=== PATIENT | male | born 1980 | race Caucasian/White ===

== ENCOUNTER → 2019-09-10 11:49 | Outpatient (CLI) | payer OTHER, SELFPAY ==
--- NOTE | ~2019-09-10 | MR_ITS ---
EXAMINATION: MRA brain wo con EXAM DATE: 09/10/2019 12:18 INDICATION: Generalized headaches for couple of years. TECHNIQUE: 3-D [id number] MRA of the intracranial arteries was performed without contrast. There is no prior study for comparison. Correlation was made with brain MRI 06/14/2017. FINDINGS: There is normal flow related signal seen within the vertebral, basilar and internal carotid arteries. There is no proximal stenosis. There are no aneurysms identified. Both A1 and P1 segments are pat ent. Flow in the cerebral arteries is symmetric. IMPRESSION: Normal MRA brain exam. Reviewed, dictated and finalized at location B. IMPRESSION: Normal MRA brain exam.
== END ==
PROVIDERS: PCP Family Medicine; Visit Provider Physician Assistant
DX: F17.200 Nicotine dependence, unspecified, uncomplicated (principal); R51 Headache; Z79.899 Other long term (current) drug therapy
CPT/HCPCS: 70544

== ENCOUNTER → 2021-04-14 08:15 | Outpatient (CLI) | payer OTHER, SELFPAY ==
[2021-04-14 19:08] LABS: SARS-CoV-2 RNA PCR Positive
== END ==
PROVIDERS: PCP Family Medicine; Visit Provider Physician Assistant Medical
DX: U07.1 COVID-19 (principal); R68.89 Other general symptoms and signs
CPT/HCPCS: C9803; U0003; U0005

== ENCOUNTER 2021-07-18 19:09 | Emergency (ER) | payer OTHER, SELFPAY ==
--- NOTE | ~2021-07-18 | XR_ITS ---
EXAM: XR finger 2nd RT min 2V HISTORY: fall, PAIN AT PIP JOINT RADIATES PROXIMALLY COMPARISON: None available FINDINGS: Normal mineralization. No fracture or dislocation. No lytic or blastic lesion. Joint space s maintained. No erosion or periosteal change. Soft tissue swelling over the second proximal interpha langeal joint. IMPRESSION: No acute osseous finding in the right second finger. Reviewed, dictated and finalized at location K.
[2021-07-18 19:16] VITALS: BP 128/90; PULSE 86; RESP 18; TEMP 36.8; O2SAT 97
--- NOTE | 2021-07-18 20:30 | ED.UPPEXIN ---
HPI - Extremity Injury (Upper) General Chief Complaint: Extremity Injury, Upper Stated Complaint: right index finger injury Time Seen by Provider: 07/18/21 20:05 Source: patient History of Present Illness HPI narrative: Patient presents with a finger injury. Patient reports he is walking his in-laws dog when he tripped lost control the dog and fell to the concrete. 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 His pain is primarily on the PIP joint and he also noted swelling and ecchymoses. Reports he has a hard time flexing his finger due to the edema is concerned maybe he broke his finger so came to the ER for evaluation. In the months we can denies any loss of consciousness strike his head or the use of any blood thinners. Related Data Home Medications Medication Instructions Recorded Confirmed No Home Medications 02/05/21 02/05/21 Allergies Allergy/AdvReac Type Severity Reaction Status Date / Time naproxen Allergy Unknown stomach Verified 07/18/21 19:18 ulcer nickel Allergy Unknown Unknown Verified 07/18/21 19:18 Review of Systems Review of Systems: CONSTITUTIONAL: Denies fever, chills, or sweats. EYES: Denies visual changes, redness, or discharge. ENT: Denies rhinorrhea, congestion, sore throat, or otalgia. SKIN: Denies rash or itching. MUSCULOSKELETAL: Denies back pain, or myalgia. NEUROLOGIC: Denies headache, numbness, dizziness, or weakness. PSYCHIATRIC: Denies anxiety or depression. All systems reviewed & are unremarkable except as noted in HPI and below PMFSH Family History Family History Grandparent Diabetes mellitus Mother Depression Social History Social History Tobacco type: cigarettes Alcohol intake: current Substance use: never Substance use type: does not use Exam Narrative: GENERAL: Well-appearing, well-nourished, and in no acute distress. HEAD: Normocephalic, atraumatic. EYES: PERRLA and EOMI. ENT: Nares clear, no rhinorrhea or epistaxis. Mucous membranes moist. NECK: Supple. No masses. No JVD EXTREMITIES: Limited range of motion of the second digit right hand due to edema there is edema and ecchymosis along PIP joint distal extremity as sensation intact to light touch cap refill is less than 2 seconds DIP joint range of motion remains intact on the second digit right hand there is tenderness at the PIP joint on the second digit right hand no other areas of focal tenderness SKIN: Warm, dry, no rash. NEURO: No focal deficits. Alert and oriented x3. PSYCH: Normal mood and affect. Course Vital Signs Vital signs: Vital Signs Temperature 36.8 C 07/18/21 19:16 Pulse Rate 86 07/18/21 19:16 Respiratory Rate 18 07/18/21 19:16 Blood Pressure 128/90 07/18/21 19:16 Pulse Oximetry 97 07/18/21 19:16 Temperature 36.8 C 07/18/21 19:16 Pulse Rate 86 07/18/21 19:16 Respiratory Rate 18 07/18/21 19:16 Blood Pressure 128/90 07/18/21 19:16 Pulse Oximetry 97 07/18/21 19:16 MDM - Extremity Injury (Upper) MDM Narrative Medical decision making narrative: H&P as above, vss, pt looks clinically well, exam with no obvious deformity distal extremity neurovascular intact, imaging without acute process, additional labs/img considered, symptomatic relief available as needed, on reevaluation pt continues to looks clinically well. Suspect soft tissue injury such as strain or contusion, dns fracture, dislocation, major neurovascular compromise. plan to tx/monitor as op w/ pcm f/u findings/plan discussed with pt, pt agree/comfortable with plan, return precautions given Imaging Data Radiologist's impression: Impressions Finger X-Ray 07/18/21 19:26 IMPRESSION: No acute osseous finding in the right second finger. Discharge Plan Disc
== END 2021-07-18 20:40 | disposition home or self-care (01) ==
PROVIDERS: Emergency Provider Emergency Medicine; PCP Family Medicine
DX: S69.91XA Unspecified injury of right wrist, hand and finger(s), initial encounter (principal); F17.210 Nicotine dependence, cigarettes, uncomplicated; W01.0XXA Fall on same level from slipping, tripping and stumbling without subsequent striking against object, initial encounter; Y93.K1 Activity, walking an animal
CPT/HCPCS: 73140; 99283

== ENCOUNTER 2021-07-31 16:16 | Emergency (ER) | payer OTHER, SELFPAY ==
[2021-07-31 16:21] VITALS: BP 148/92; PULSE 82; RESP 16; TEMP 36.3; O2SAT 99
--- NOTE | 2021-07-31 16:33 | ED.ABDPAIN ---
HPI - Abdominal Pain General Chief Complaint: Abdominal Pain Stated Complaint: UPPER ABD PAIN Time Seen by Provider: 07/31/21 16:34 Source: patient and RN notes reviewed Mode of arrival: ambulatory Limitations: no limitations History of Present Illness HPI narrative: 41-year-old male presented for complaint of left upper abdominal pain for 5 days. He states the pain is constant, waxes and wanes in intensity, at its worst is 8 out of 10. He states it has been decreasing in intensity slightly. Pain is elicited with movement, he prefers to stand or with left leg straightened out when sitting. When the pain comes it lasts about 15 seconds, at least 2 times an hour. He endorses associated nausea at that time. He has not had any vomiting, diarrhea, constipation, hematochezia, or urinary complaints, fevers or chills. Endorses approximately 15 years ago he had been treated for suspected ulcers related to NSAID use. He states this feels similar. He took 800 mg of ibuprofen 1 time last week for migraine. MD elicited complaint: abdominal pain Related Data Home Medications Medication Instructions Recorded Confirmed No Home Medications 02/05/21 02/05/21 Allergies Allergy/AdvReac Type Severity Reaction Status Date / Time naproxen Allergy Unknown stomach Verified 07/18/21 19:18 ulcer nickel Allergy Unknown Unknown Verified 07/18/21 19:18 Review of Systems Review of Systems: CONSTITUTIONAL: Denies body aches, fever, chills EYES: Denies visual changes ENT: Denies rhinorrhea, congestion CARDIOVASCULAR: Denies chest pain, palpitations, or edema. RESPIRATORY: Denies cough or dyspnea. GASTROINTESTINAL: Endorses abdominal pain Denies hematochezia, melena, hematemesis GENITOURINARY: Denies dysuria, hematuria, or CVA tenderness. SKIN: Denies rash, itching, or wounds. MUSCULOSKELETAL: Denies back pain, joint pain, or myalgia. NEUROLOGIC: Denies headache, numbness, tingling, or weakness. PSYCH: Denies mood change All systems reviewed & are unremarkable except as noted in HPI and below PMFSH Family History Family History Grandparent Diabetes mellitus Mother Depression Social History Social History Tobacco type: cigarettes Alcohol intake: current Substance use: never Substance use type: does not use Comments At time of signature, I have reviewed and agree with nursing past medical, surgical, social and family history unless otherwise noted. Please see nursing chart for further information. There is no relevant family history pertinent to the presenting complaint Exam Narrative: GENERAL: Well-appearing HEAD: Normocephalic, atraumatic. EYES: EOMI. Conjunctivae normal. ENT: Mucous membranes pink and moist. NECK: Normal AROM. Supple. No lymphadenopathy. CHEST: No respiratory distress. Clear to auscultation. HEART: Regular rate and rhythm. No murmur appreciated. Normal peripheral pulses. ABDOMEN: Tender abdomen to epigastric and LUQ, No guarding, rebound tenderness, or asymmetry; abd soft, nondistended, normal active bowel sounds. No rash/lesions/bruising. MUSCULOSKELETAL: No bony tenderness. EXTREMITIES: Normal range of motion. No edema. SKIN: Warm, dry, no rash. Capillary refill normal. Normal skin turgor. NEURO: No focal deficits. Alert and oriented x3. Gait steady. PSYCH: Normal affect. Course Course Emergency Course: Patient is aware of diagnosis, understands and agrees to treatment plan. Anticipatory guidance given. Patient agrees to follow-up as directed and is aware of reasons to seek care at the emergency department. Portions of this record may have been created with voice recognition software Level of Care: Express Care Visit Vital Signs Vital signs: Vital Signs Temperature 97.3 F L 07/31/21 16:21 Pulse Rate 82 07/31/21 16:21 Respiratory Rate 16 07/31/21 16:21 Blood
== END 2021-07-31 17:08 | disposition home or self-care (01) ==
PROVIDERS: Emergency Provider Nurse Practitioner Family; PCP Family Medicine
DX: R10.13 Epigastric pain (principal)
CPT/HCPCS: 99213; G0463

== ENCOUNTER → 2021-08-13 14:46 | Outpatient (CLI) | payer OTHER, SELFPAY ==
--- NOTE | ~2021-08-13 | CT_ITS ---
EXAMINATION: CT abdomen pelvis w con DATE: 08/13/2021 15:10 INDICATION: Left upper quadrant abdominal pain TECHNIQUE: Computed tomography (CT) of the abdomen and pelvis was performed with 100 mL Omnipaque-300 intravenous contrast. Automated exposure control and iterative reconstruction technique were employe d. The dose-length product was 796.71 mGy-cm. COMPARISON: None FINDINGS: Essentially calcified right lower lobe nodule consistent with old granulomatous disease. Heart size i s normal. No pericardial or pleural effusion. Liver, gallbladder, spleen, pancreas, bilateral adrenal glands and kidneys are normal. Bones including the appendix are normal. Bladder is normal. No free i ntraperitoneal gas or fluid. No pathologically enlarged abdominal or pelvic lymphadenopathy. Chronic appearing minimal anterior wedging at T11 and T12. Tiny fat-containing umbilical hernia. IMPRESSION: 1. No acute intra-abdominal/pelvic process. Reviewed, dictated and finalized at location B.
== END ==
PROVIDERS: PCP Family Medicine; Visit Provider Physician Assistant
DX: R10.12 Left upper quadrant pain (principal)
CPT/HCPCS: 74177; Q9967

== ENCOUNTER 2022-03-10 10:11 | Outpatient (CLI) | payer OTHER, SELFPAY | END 2022-03-10 10:12 | disposition home or self-care (01) | LOC: ANHAUDASC 10:12 | PROVIDERS: PCP Family Medicine; Visit Provider Physician Assistant | DX: H91.90 Unspecified hearing loss, unspecified ear (principal); H93.19 Tinnitus, unspecified ear | CPT/HCPCS: 92557; 92567 ==

== ENCOUNTER → 2023-02-21 16:47 | Outpatient (CLI) | payer OTHER, SELFPAY ==
--- NOTE | ~2023-02-21 | XR_ITS ---
EXAMINATION: XR foot LT min 3V DATE: 02/21/2023 16:58 INDICATION: Plantar fascial fibromatosis. TECHNIQUE: 4 views of left foot were obtained. COMPARISON: Left foot radiographs 11/24/16 FINDINGS: Bone alignment is normal. No fracture. There is mild osteoarthritis of first metatarsophala ngeal joint and first interphalangeal joint. There are enthesophytes at the posterior and plantar asp ects of calcaneal tuberosity. IMPRESSION: 1. Mild polyarticular osteoarthritis. Reviewed, dictated and finalized at location E. BODY MECHANIC
== END ==
PROVIDERS: PCP Emergency Medicine; Visit Provider Emergency Medicine
DX: M72.2 Plantar fascial fibromatosis (principal); M19.072 Primary osteoarthritis, left ankle and foot
CPT/HCPCS: 73630

== ENCOUNTER 2023-04-05 08:44 | Outpatient (CLI) | payer OTHER, SELFPAY ==
--- NOTE | 2023-04-05 11:00 | NEURO_ITS ---
Impression: # Complains of numbness of left 4th and 5th fingers. # Normal Nerve Conduction Study. No Carpal Tunnel Syndrome or ulnar neuropathy. # Needle/EMG exam mildly neurogenic without active fibs in Abd Digiti Minimi. # Clinical correlation recommended; Cervical pathology needs to be ruled out. Nerve Conduction Studies Anti Sensory Summary Table Stim Site NR Peak (ms) P-T Amp (?V) Site1 Site2 Delta-P (ms) Dist (cm) Zechariah (m/s) Left Median Anti Sensory (2-3nd Digit) Wrist 3.2 34.4 Wrist 2-3nd Digit 3.2 14.0 44 Wrist 3.2 37.8 Wrist 2-3nd Digit 3.2 14.0 44 Left Radial Anti Sensory (Base 1st Digit) Wrist 2.0 25.4 Wrist Base 1st Digit 2.0 0.0 Left Ulnar Anti Sensory (5th Digit) Wrist 2.8 55.9 Wrist 5th Digit 2.8 14.0 50 Motor Summary Table Stim Site NR Onset (ms) O-P Amp (mV) Site1 Site2 Delta-0 (ms) Dist (cm) Zechariah (m/s) Left Median Motor (Abd Poll Brev) Wrist 3.4 5.3 Elbow Wrist 5.2 32.0 62 Elbow 8.6 3.8 Left Ulnar Motor (Abd Dig Minimi) Wrist 2.8 6.6 A Elbow Wrist 5.3 33.0 62 A Elbow 8.1 6.1 F Wave Studies NR F-Lat (ms) L-R F-Lat (ms) Left Median (Mrkrs) (Abd Poll Brev) 30.90 Left Ulnar (Mrkrs) (Abd Dig Min) 31.43 EMG Side Muscle Nerve Root Ins Act Fibs Amp Dur Recrt Comment Left 1stDorInt Ulnar C8-T1 Nml Nml Nml >12ms Nml Left Ext Indicis Radial (Post Int) C7-8 Nml Nml Nml Nml Nml Left Ext Digitorum Radial (Post Int) C7-8 Nml Nml Nml Nml Nml Left BrachioRad Radial C5-6 Nml Nml Nml Nml Nml Left PronatorTeres Median C6-7 Nml Nml Nml Nml Nml Left Abd Poll Brev Median C8-T1 Nml Nml Nml Nml Nml Left ABD Dig Min Ulnar C8-T1 Nml Nml Nml >12ms Nml Left Biceps Musculocut C5-6 Nml Nml Nml Nml Nml Left Triceps Radial C6-7-8 Nml Nml Nml Nml Nml MTDD
== END 2023-04-05 08:45 | disposition home or self-care (01) ==
LOC: ANHNEURO 08:47
PROVIDERS: PCP Emergency Medicine; Visit Provider Emergency Medicine
DX: R20.0 Anesthesia of skin (principal)
CPT/HCPCS: 95886; 95909

== ENCOUNTER 2023-05-11 15:30 | Outpatient (RCR) | payer OTHER, SELFPAY ==
--- NOTE | 2023-03-10 16:53 | OPREHPOC ---
Outpatient Therapy Plan of Care This is a Multidisciplinary Plan of Care that may contain components documented by all disciplines (PT, OT, and ST.) PT Problem 1 PT Problem #1 Knowledge Deficit PT Goal 1 Goal Pt to be IND with issued HEP Target Visit 8 PT Problem 2 PT Problem #2 Pain PT Goal 1 Goal Pt to report foot pain no greater than 3/10 in the last week. Target Visit 8 PT Goal 2 Goal Pt to report L hand pain no greater than 3/10 in the last week. Target Visit 8 PT Problem 3 PT Problem #3 Pain PT Goal 1 Goal Pt to report 75% improvement in overall symptoms. Target Visit 8 PT Problem 4 PT Problem #4 Impaired Range of Motion PT Goal 1 Goal Pt to improve great toe passive extension to 40 deg Target Visit 8 PT Goal 2 Goal Pt to report equal stretch sensation with passive wrist flexion stretch Target Visit 8
--- NOTE | 2023-03-10 16:53 | PTOPEVAL1 ---
Assessment and note entered by Eduardo Ball, PT, DPT Evaluation Information Assessment Status Evaluation Diagnosis L plantar fascitis, L lateral epicondytitis Subjective Information Pt states for the last year or so he has had a tightness in the bottom of his foot. He states first things in the morning is when his pain and tightness is the worst, and makes it really uncomfortable to walk on. He has mild pain at rest , his pain increases with increased rest. Pt states about a year ago he pinched a nerve in his upper back and treated this with occasional caregiver. He states initially the pain in his back went away, and after then he has a pain in his elbow and has altered sensation in his 4th and 5th digit of his R hand. Reported Pain Level Pain Score 2,0: Self Report Assessment PT Clinical Summary Fabrice presents to therapy today for his initial evaluation with a diagnosis of L foot plantar fascitis and L elbow lateral epicondylitis with ulnar nerve irritations. Today he demonstrates decreased mobility of the plantar fascia and decreased great toe active and passive ROM. He demonstrates ulnar nerve irritation with tensioner exercises and decreased wrist mobility limited by pain. Skilled therapy services are indicated to manage pain, to improve mobility, and to return to PLOF. Plan of Care Interventions Electrical Stimulation,Gait Training,Hot Pack/Cold Pack,Manual Therapy,Neuro Re-education,Patient/ Caregiver Educati,Therapeutic Activities, Therapeutic Exercise PT Services Indicated Yes Treatment Frequency and 2x/wk for 8 visits Duration These treatments will address the objective and functional deficits as defined above. The patient will be advanced safely and appropriately in order for the patient to progress towards his/her prior level of function. Additional exercises will be introduced and as well as a comprehensive home exercise program upon discharge, if needed, ?to ensure carryover of functional gains achieved in the clinic. This treatment plan has been reviewed and agreement upon by the patient.
--- NOTE | 2023-04-07 16:30 | PTOPPROG ---
Assessment and note entered by Eduardo Ball, PT, DPT Evaluation Information Assessment Status Progress Diagnosis L plantar fascitis, L lateral epicondytitis Subjective Information Pt states overall his pain is relatively unchanged . He states he had a negative nerve conduction in his L hand, he will be scheduled for an MRI. Pt states he was in a car for 5-6 hours over the weekend and since then he has been getting some random nerve pain down his L leg. He states is a little bit better since starting his exercises. Assessment PT Clinical Summary Fabrice presents to therapy today for his progress report following 4 visits of skilled therapy to treat his diagnosis of L foot plantar fascitis and L elbow lateral epicondylitis with ulnar nerve irritations. Today he reports little to no improvement when addressing his pain as lateral epicondylitis. Continuation of skilled therapy services are indicated to treat cervical radiculopathy, to manage pain, to improve mobility , and to return to PLOF. Plan of Care Interventions Electrical Stimulation,Gait Training,Hot Pack/Cold Pack,Manual Therapy,Mechanical Traction,Neuro Re- education,Patient/Caregiver Educati,Therapeutic Activities,Therapeutic Exercise PT Services Indicated Yes Treatment Frequency and 1x/wk for 4 visits Duration These treatments will address the objective and functional deficits as defined above. The patient will be advanced safely and appropriately in order for the patient to progress towards his/her prior level of function. Additional exercises will be introduced and as well as a comprehensive home exercise program upon discharge, if needed, ?to ensure carryover of functional gains achieved in the clinic. This treatment plan has been reviewed and agreement upon by the patient.
--- NOTE | 2023-05-06 15:02 | PCPTNOTE ---
Patient called to cancel due to weather.
--- NOTE | 2023-05-11 16:32 | PTOPDC ---
Assessment and note entered by Eduardo Ball, PT, DPT Evaluation Information Assessment Status Discharge Diagnosis L plantar fascitis, L lateral epicondytitis Subjective Information Pt states he feels like his L hand is starting to get a little less numb with the exercises. He states his feet and knee remain about the same. Reported Pain Level Pain Score 4,5: Self Report Assessment PT Clinical Summary Fabrice presents to therapy today for his progress report following 8 visits of skilled therapy to treat his diagnosis of L foot plantar fasciitis and cervical radiculopathy. Today he reports mild improvements in her L sided peripheral symptoms in the last 2 weeks or so. He demonstrates improved ankle and foot ROM without an improvement in symptoms. He states with multiple other health things going on, he would like to be done with therapy for now. He will be discharged at this time. Plan of Care PT Services Indicated No
== END 2023-05-12 08:35 | disposition home or self-care (01) ==
LOC: ANHGOSHPT 15:30
PROVIDERS: PCP Emergency Medicine; Visit Provider Emergency Medicine
DX: M77.12 Lateral epicondylitis, left elbow (principal); M72.2 Plantar fascial fibromatosis; G56.22 Lesion of ulnar nerve, left upper limb
CPT/HCPCS: 97012; 97110; 97112; 97140; 97161; 97530

== ENCOUNTER 2023-10-12 08:16 | Emergency (ER) | payer OTHER, SELFPAY ==
[2023-10-12 08:38] VITALS: BP 108/76; PULSE 95; RESP 16; TEMP 36.3; O2SAT 96
--- NOTE | 2023-10-12 08:47 | ED.NAVMDI ---
HPI - Nausea/Vomiting/Diarrhea General Chief complaint: Nausea/Vomiting/Diarrhea Stated complaint: VOMITING/DIARRHEA/CHILLS Time Seen by Provider: 10/12/23 08:45 Source: patient and RN notes reviewed Mode of arrival: ambulatory Limitations: no limitations History of Present Illness HPI Narrative: 43-year-old male presents with concern for diarrhea after returning from [place]. Reports on Tuesday, 6 days ago, he starting having watery diarrhea any time he eats any food. He reports nausea, body aches, fevers well. He denies vomiting. Reports he has a bowel movement about every 30 minutes. Reports he is able to drink fluids and is urinating a normal amount MD elicited complaint: diarrhea Related Data Allergies Allergy/AdvReac Type Severity Reaction Status Date / Time naproxen Allergy Unknown stomach Verified 10/12/23 08:57 ulcer nickel Allergy Unknown Unknown Verified 10/12/23 08:57 Review of Systems Review of Systems: CONSTITUTIONAL: Denies malaise, chills, sweats. Reports fever. ENT: Denies rhinorrhea, congestion, sinus pain, otalgia or sore throat. CARDIOVASCULAR: Denies chest pain, palpitations, or edema. RESPIRATORY: Denies cough or dyspnea. GASTROINTESTINAL: Denies abdominal pain, vomiting, bloody, or mucous stools. Reports nausea and diarrhea GENITOURINARY: Denies dysuria or hematuria. MUSCULOSKELETAL: Denies reports. NEUROLOGIC: Denies headache. All systems reviewed & are unremarkable except as noted in HPI and below PMFSH Past Medical History Medical History (Updated 10/12/23 @ 09:05 by Jael Rosenbaum NP) Cervical radiculopathy Family History Family History Grandparent Diabetes mellitus Mother Depression Social History Social History Smoking status: Former smoker Tobacco type: cigarettes Alcohol intake: current Substance use: never Substance use type: does not use Lack of Transportation: No Lack of Food: Never True Current Housing: I Have Housing Concerned About Future Housing: No Difficulty Paying Gas/Electric Bills: No Difficulty Paying for Meds: No Currently Unemployed: No Education: High School Diploma/GED Difficulty w/ Childcare or Family Care: No Comments At time of signature, agree with nursing past medical, surgical, social and family history. There is no relevant family history pertinent to the presenting complaint Exam Narrative: GENERAL: Well-appearing, well-nourished, and in no acute distress. HEAD: Normocephalic, atraumatic. EYES: PERRLA, conjunctivae clear, and EOMI. ENT: Nares clear, turbinates pink, no rhinorrhea or epistaxis. Mucous membranes moist. Oropharynx without edema, erythema, or lesions. Tonsils not enlarged and without exudate. NECK: Supple. No lymphadenopathy CHEST: Speaks in full sentences. No respiratory distress. HEART: Regular rate and rhythm. ABDOMEN: Soft, flat, nondistended, nontender. No guarding, rebound tenderness, or rigidity. No pulsatile masses. Bowel sounds present in all four quadrants. SKIN: Warm, dry, no rash. NEURO: Alert and oriented x3. PSYCH: Normal mood and affect Course Course Emergency Course: Patient is aware of diagnosis, understands and agrees to treatment plan. Anticipatory guidance given. Patient agrees to follow-up as directed and is aware of reasons to seek care at the emergency department. Portions of this record may have been created with voice recognition software Level of Care: Express Care Visit Vital Signs Vital signs: Vital Signs Temperature 97.4 F L 10/12/23 08:38 Pulse Rate 95 10/12/23 08:38 Respiratory Rate 16 10/12/23 08:38 Blood Pressure 108/76 10/12/23 08:38 Pulse Oximetry 96 10/12/23 08:38 Temperature 97.4 F L 10/12/23 08:38 Pulse Rate 95 10/12/23 08:38 Respiratory Rate 16 10/12/23 08:38 Blood Pressure 108/76 10/12/23 08:38
== END 2023-10-12 09:10 | disposition home or self-care (01) ==
PROVIDERS: Emergency Provider Nurse Practitioner; PCP Emergency Medicine
DX: A09 Infectious gastroenteritis and colitis, unspecified (principal); Z87.891 Personal history of nicotine dependence; M54.12 Radiculopathy, cervical region
CPT/HCPCS: 99213; G0463

== ENCOUNTER 2023-12-05 15:32 | Outpatient (CLI) | payer OTHER, SELFPAY | END 2023-12-05 15:33 | disposition home or self-care (01) | LOC: ANHGOSHLAB 15:34 | PROVIDERS: PCP Emergency Medicine; Visit Provider Otolaryngology | DX: E03.9 Hypothyroidism, unspecified (principal); E04.0 Nontoxic diffuse goiter | CPT/HCPCS: 36415; 84443 ==

== ENCOUNTER 2024-01-13 10:33 | Outpatient (CLI) | payer OTHER, SELFPAY ==
--- NOTE | ~2024-01-13 | US_ITS ---
EXAMINATION: US thyroid DATE: 01/13/2024 11:06 INDICATION: Nontoxic diffuse goiter. TECHNIQUE: Multiple ultrasound images of the thyroid were obtained. COMPARISON: Ultrasound 07/04/2017 FINDINGS: The right thyroid lobe measures 4.4 x 1.1 x 1.8 cm. The left thyroid lobe measures 4.3 x 1.1 x 1.6 c m. There is normal echotexture and echogenicity throughout the thyroid gland. No discrete nodules id entified. Normal vascular flow is present. IMPRESSION: 1. Normal thyroid. Reviewed, dictated and finalized at location A. IMPRESSION: 1. Normal thyroid.
== END 2024-01-13 10:34 | disposition home or self-care (01) ==
PROVIDERS: PCP Emergency Medicine; Visit Provider Otolaryngology
DX: E03.9 Hypothyroidism, unspecified (principal); E04.0 Nontoxic diffuse goiter
CPT/HCPCS: 76536

== ENCOUNTER 2024-04-25 08:30 | Outpatient (CLI) | payer OTHER, SELFPAY ==
--- NOTE | ~2024-04-25 | MR_ITS ---
EXAMINATION: MR ankle RT wo con DATE: 04/25/2024 09:34 INDICATION: Achilles tendinitis at the right leg. TECHNIQUE: Magnetic resonance imaging (MRI) of the right ankle was performed without intravenous cont rast. Sequences included sagittal, coronal, and axial proton-density weighted fast spin echo without and with fat saturation. COMPARISON: None. FINDINGS: Medial ankle ligaments: Deep and superficial deltoid ligaments as well as the spring ligament are normal. Lateral ankle ligaments: The anterior and posterior inferior tibiofibular ligaments are normal. The anterior talofibular, calc aneofibular and posterior talofibular ligaments are normal. Tendons: Achilles tendon is normal. The peroneus longus and brevis tendons are normal. The tibialis anterior a nd extensor hallucis longus and extensor digitorum longus tendons are normal. The tibialis posterior, flexor digitorum longus and flexor hallucis longus tendons are normal. Plantar fascia: Tiny enthesophyte at the calcaneal origin of the otherwise normal plantar aponeurosis. Bones/other: Bone alignment is normal. Likely intraosseous ganglion cyst in the calcaneus at the medial junction o f the sinus Tarsi and the posterior facet of the face talar joint. Bone marrow signal is otherwise no rmal. No reactive edema, fracture or pathologic marrow replacing process. Joint spaces at the ankle, mid and hindfoot are normal. Fluid: Physiologic amount fluid in the joint spaces. No tenosynovitis, bursitis or other abnormal fluid nelson ections. IMPRESSION: 1. Unremarkable right ankle MRI including normal Achilles tendon. Reviewed, dictated and finalized at location A. 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
--- NOTE | ~2024-04-25 | MR_ITS ---
EXAMINATION: MR foot LT wo con DATE: 04/25/2024 09:24 INDICATION: Left foot pain. TECHNIQUE: Magnetic resonance imaging (MRI) of the left foot was performed without intravenous contra st. COMPARISON: Left foot radiographs 02/21/2023 FINDINGS: Alignment is normal. No fracture. There is mild osteoarthritis of first metatarsophalangeal joint, fourth tarsometatarsal joint, and some of the interphalangeal joints. There is a skin marker dorsal to the fourth and fifth metatarsophalangeal joints. The flexor and extensor tendons are normal . Lisfranc ligament is normal. IMPRESSION: 1. No specific etiology for the patient's symptoms. 2. Mild polyarticular osteoarthritis. Reviewed, dictated and finalized at location A. [employer]
== END 2024-04-25 08:31 | disposition home or self-care (01) ==
LOC: MICIMG 08:31
PROVIDERS: Visit Provider Podiatrist Foot & Ankle Surgery
DX: M79.672 Pain in left foot (principal); M76.61 Achilles tendinitis, right leg; M66.371 Spontaneous rupture of flexor tendons, right ankle and foot; M76.71 Peroneal tendinitis, right leg
CPT/HCPCS: 73718; 73721